=== PATIENT | male | born 1950 | race Caucasian/White ===

== ENCOUNTER → 2016-11-27 | Outpatient (CLI) | payer MEDICARE, OTHER ==
[~2016-11-27] MED LIST: ADVA100A INH; BENI40TA30 PO; CLON.2 PO; LABE200T2 PO; LEVA500T33 PO; METR-1 PO
--- NOTE | 2016-11-29 09:32 | RSPPFT ---
DATE OF PROCEDURE: 11/27/16 COMMENTS: VOLUMES DYNAMIC: FVC mildly reduced; FEV1 moderately reduced. STATIC: TLC normal; FRC mildly increased; RV severely increased. FLOWS: FEV1% moderately reduced; FEF 25-75 severely reduced. DIFFUSION: Moderately reduced. FLOW VOLUME LOOP: Pattern of variable intrathoracic airways obstruction. IMPRESSION: Moderate to severe obstructive ventilatory defect with reduction in diffusion consistent with emphysema. There is also significant hyperinflation. Airways resistance is increased. There is no improvement post-bronchodilator.
== END ==
LOC: PHRSP 08:44
PROVIDERS: ATTEND Internal Medicine
DX: J44.9 Chronic obstructive pulmonary disease, unspecified (principal); R06.00 Dyspnea, unspecified
CPT/HCPCS: 94060; 94620; 94726; 94729

== ENCOUNTER 2017-02-04 16:04 | Inpatient (IN) | payer MEDICARE, OTHER ==
[2017-02-04] VITALS (7 sets, daily range): BP systolic 136–153; BP diastolic 66–80; PULSE 80–94; RESP 15–20; TEMP 98–98.7; O2SAT 97–100
[2017-02-04] MEDS ORDERED: SODIUM CHLOR 0.9% 250 ML INJ 250 ML IV ONE (17:00)
[2017-02-04] MEDS ORDERED: NIFE30TA61 PO (17:11)
[2017-02-04] MEDS ORDERED: SPIRCAP INH (17:11)
[2017-02-04] MEDS ORDERED: TORS20TA PO (17:11)
[2017-02-04] MEDS ORDERED: CLON0.1T PO (17:11)
[2017-02-04] MEDS ORDERED: OMEP20TA93 PO (17:11)
[2017-02-04] MEDS ORDERED: METO50TA PO (17:11)
[2017-02-04] MEDS ORDERED: BENI40TA29 PO (17:11)
[2017-02-04] MEDS ORDERED: VENTAER INH (17:11)
[2017-02-04] MEDS ORDERED: ADVA250A INH (17:11)
[2017-02-04] MEDS ORDERED: XARE20TA PO (17:11)
--- NOTE | 2017-02-04 17:22 | PD ---
HPI Chief Complaint: Medical Clearance Time Seen by Provider: 16:57 Travel History International Travel<30 days: No Contact w/Intl Traveler<30days: No Traveled to known affect area: No History of Present Illness HPI patient c/o a week h/o generalized weakness and some occassional black tarry stool. aggravated by activity and no alleviating factor.... denies assoc factors such as abd pain/n/v/d/fever/cough/runny nose/blood in urine/vomiting blood pcp dr murillo all;moxifloxacin pmhx: afib on xarelto, copd, htn, divertic PFSH Past Medical History Asthma: Yes Atrial Fibrillation: Yes Blood Disorders: No Heart Rhythm Problems: No Cancer: No Cardiovascular Problems: Yes High Cholesterol: No Chest Pain: No Congestive Heart Failure: No COPD: Yes Cerebrovascular Accident: No Diminished Hearing: No Diverticulitis: Yes Endocrine: No Gastrointestinal Disorders: Yes (DIVERTICULITIS) GERD: No Genitourinary: No Headaches: No Hepatitis: No Hiatal Hernia: No Hypertension: Yes Immune Disorder: No Musculoskeletal: No Neurologic: Yes Psychiatric: No Reproductive: No Respiratory: Yes Migraines: No Myocardial Infarction: No Seizures: Yes Sleep Apnea: No Ulcer: No Tetanus Vaccination: > 5 Years ?: Not Past Surgical History Appendectomy: No Cholecystectomy: No Joint Replacement: Yes (right hip) Tonsillectomy: Yes Other Surgery: Yes (hernia) Social History Alcohol Use: Yes (2 DRINKS A DAY) Tobacco Use: No Substance Use: No Allergies-Medications (Allergen,Severity, Reaction): Coded Allergies: moxifloxacin (Verified Allergy, Severe, Anaphylaxis, 02/04/17) Reported Meds & Prescriptions Reported Meds & Active Scripts Active Reported Xarelto (Rivaroxaban) 20 Mg Tab 20 Mg PO DAILY Nifedipine ER 24 HR (Nifedipine) 30 Mg Tab 30 Mg PO DAILY Clonidine (Clonidine HCl) 0.1 Mg Tab 0.1 Mg PO DAILY Omeprazole 20 Mg Tab 20 Mg PO DAILY Metoprolol Tartrate 50 Mg Tab 50 Mg PO BID Torsemide 20 Mg Tab 20 Mg PO DAILY Benicar (Olmesartan) 40 Mg Tab 40 Mg PO DAILY Spiriva Handihaler (Tiotropium Inh) 18 Mcg Cap 18 Mcg INH DAILY 1 capsule = 18 mcg Ventolin Hfa 18 GM Inh (Albuterol Sulfate) 90 Mcg/Act Aer 2 Puff INH Q4H PRN Advair Diskus Inh (Fluticasone-Salmeterol Inh) 250-50 Mcg/Blist Aer 1 Puff INH BID Rinse mouth after use. Review of Systems Except as stated in HPI: all other systems reviewed are Neg General / Constitutional: No: Fever Eyes: No: Visual changes HENT: No: Headaches Cardiovascular: No: Chest Pain or Discomfort Respiratory: No: Shortness of Breath Gastrointestinal: No: Abdominal Pain Genitourinary: No: Dysuria Musculoskeletal: No: Pain Skin: No Rash Neurologic: Positive: Weakness (generalized) Psychiatric: No: Depression Endocrine: No: Polydipsia Hematologic/Lymphatic: No: Easy Bruising Physical Exam Narrative GENERAL: SKIN: Warm and dry. HEAD: Atraumatic. Normocephalic. EYES: Pupils equal and round. No scleral icterus. No injection or drainage. ENT: No nasal bleeding or discharge. Mucous membranes pink and moist. NECK: Trachea midline. No JVD. CARDIOVASCULAR: Regular rate and rhythm. RESPIRATORY: No accessory muscle use. Clear to auscultation. Breath sounds equal bilaterally. GASTROINTESTINAL: Abdomen soft, non-tender, nondistended. rn beto at bedside ( guaiac positive) MUSCULOSKELETAL: Extremities without clubbing, cyanosis, or edema. No obvious deformities. NEUROLOGICAL: Awake and alert. No obvious cranial nerve deficits. Motor grossly within normal limits. Five out of 5 muscle strength in the arms and legs. Normal speech. PSYCHIATRIC: Appropriate mood and affect; insight and judgment normal. Data Data Last Documented VS Vital Signs Date Time Temp Pulse Resp B/P (MAP) Pulse Ox O2 Delivery O2 Flow Rate FiO2 02/04/17 16:05 98.7 85 15 136/73 (94) 100 Orders Orders Complete Blood Count With Diff (02/04/17 16:58) Comprehensive Metabolic Panel (02/04/17 16:58) Prothrombin Time / Inr (Pt) (02/04/17 16:58) Act Partial Throm Time (Ptt) (02/04/17 16:58) Type And Screen (02/04/17 16:58) Red Blood Cells (Rbc) (02/04/17 16:58) Blood Product Administration (02/04/17 16:58) Sodium Chlor 0.9% 250 Ml Inj (Ns 250 Ml (02/04/17 17:00) Labs Laboratory Tests Test 02/04/17 17:18 White Blood Count 8.0 TH/MM3 Red Blood Count 3.55 MIL/MM3 Hemoglobin 6.1 GM/DL Hematocrit 22.0 % Mean Corpuscular Volume 61.9 FL Mean Corpuscular Hemoglobin 17.1 PG Mean Corpuscular Hemoglobin Concent 27.6 % Red Cell Distribution Width 21.5 % Platelet Count 327 TH/MM3 Mean Platelet Volume 8.3 FL Neutrophils (%) (Auto) 71.4 % Lymphocytes (%) (Auto) 12.8 % Monocytes (%) (Auto) 14.4 % Eosinophils (%) (Auto) 0.1 % Basophils (%) (Auto) 1.3 % Neutrophils # (Auto) 5.7 TH/MM3 Lymphocytes # (Auto) 1.0 TH/MM3 Monocytes # (Auto) 1.2 TH/MM3 Eosinophils # (Auto) 0.0 TH/MM3 Basophils # (Auto) 0.1 TH/MM3 CBC Comment DIFF FINAL Differential Comment Prothrombin Time 23.1 SEC Prothromb Time International Ratio 2.3 RATIO Activated Partial Thromboplast Time 35.2 SEC Blood Urea Nitrogen 21 MG/DL Creatinine 1.52 MG/DL Random Glucose 94 MG/DL Total Protein 7.6 GM/DL Albumin 3.8 GM/DL Calcium Level 8.9 MG/DL Alkaline Phosphatase 101 U/L Aspartate Amino Transf (AST/SGOT) 29 U/L Alanine Aminotransferase (ALT/SGPT) 29 U/L Total Bilirubin 0.8 MG/DL Sodium Level 134 MEQ/L Potassium Level 4.1 MEQ/L Chloride Level 98 MEQ/L Carbon Dioxide Level 27.1 MEQ/L Anion Gap 9 MEQ/L Estimat Glomerular Filtration Rate 46 ML/MIN [facility] Medical Decision Making Medical Screen Exam Complete: Yes Emergency Medical Condition: Yes Medical Record Reviewed: Yes Differential Diagnosis anemia v dehydration v uti v electrolyte abnl Narrative Course patient found to have hb 6.2, guaiac positive, in no abd pain, will call [facility] for admission, transfusion and further care Diagnosis Primary Impression: Symptomatic anemia Additional Impression: gi bleed nos Admitting Information Admitting Physician Requests: Observation Juice Bruno MD Feb 04, 2017 17:22
[2017-02-04 17:49] LABS: AUTOMATED NEUTROPHIL # 5.7 TH/MM3 (1.8-7.7); BASOPHIL # 0.1 TH/MM3 (0-0.2); BASOPHIL % 1.3 % (0.0-2.0); EOSINOPHIL % 0.1 % (0.0-4.0); LYMPH % 12.8 % (9.0-44.0); MEAN CELL VOLUME 61.9 FL (80.0-100.0); MEAN CORPUSCULAR HEMOGLOBIN 17.1 PG (27.0-34.0); MONO % 14.4 % (0.0-8.0); NEUT % 71.4 % (16.0-70.0); PLATELET COUNT 327 TH/MM3 (150-450); RED BLOOD COUNT 3.55 MIL/MM3 (4.50-5.90); RED CELL DISTRIBUTION WIDTH 21.5 % (11.6-17.2)
[2017-02-04 17:53] LABS: MEAN CORPUSCULAR HGB CONC 27.6 % (32.0-36.0)
[2017-02-04 17:54] LABS: HEMO FLAGS DIFF FINAL
[2017-02-04 17:57] LABS: APTT (PATIENT) 35.2 SEC (24.3-30.1); INTERNATIONAL NORMALIZED RATIO 2.3 RATIO; PROTHROMBIN TIME - PATIENT 23.1 SEC (9.8-11.6)
[2017-02-04 18:13] LABS: ALT (GPT) 29 U/L (12-78); ANION GAP 9 MEQ/L (5-15); AST (GOT) 29 U/L (15-37); BICARBONATE 27.1 MEQ/L (21.0-32.0); BLOOD UREA NITROGEN 21 MG/DL (7-18); CHLORIDE 98 MEQ/L (98-107); GLOMERULAR FILTRATION RATE 46 ML/MIN (>89); POTASSIUM 4.1 MEQ/L (3.5-5.1); SODIUM (NA) 134 MEQ/L (136-145)
[2017-02-04 18:15] LABS: ALKALINE PHOSPHATASE 101 U/L (45-117); TOTAL BILIRUBIN ADULT 0.8 MG/DL (0.2-1.0)
[2017-02-04] MEDS ORDERED: SODIUM CHLORIDE 0.9% FLUSH 10 ML FLUSH IV FLUSH PRN (19:15)
[2017-02-04] MEDS ORDERED: NALOXONE HCL 0.4 MG/ML AMP IV PUSH PRN (19:15)
--- NOTE | 2017-02-04 19:21 | HHI.HP ---
[facility] Brenden Daily MD Admission Diagnosis Diagnoses: Travel History International Travel<30 Days: No Contact w/Intl Traveler <30 Da: No Traveled to Known Affected Are: No History of Present Illness hx from patient, er md communication, review of med records have been short of breath, dizziness, weak for couple of months no chest pain saw dark stools at home went to PCP yesterday and had cbc, called back today to come to ER no vomit no blood in urine no nose bleed some discomfort in lower abdomen mid has hx of diverticulosis on xarelto no nsaids did pass out once from dizziness last week did not go to hospital then Review of Systems Except as stated in HPI: all other systems reviewed are Neg Past Family Social History Past Medical History htn afib chronic anticoagulation on xarelto copd not on home oxygen sleep apnea on cpap at night Past Surgical History hernia sx right hip replaced Allergies: Coded Allergies: moxifloxacin (Verified Allergy, Severe, Anaphylaxis, 02/04/17) Family History dad- bone cancer and lung cancer son- from colon cancer at age 39 Social History used to smoke, quit 14yrs ago smoked for 35yrs drinks etoh about 3-4 drinks wine no drugs lives with , still driving Physical Exam Vital Signs Vital Signs Date Time Temp Pulse Resp B/P (MAP) Pulse Ox O2 Delivery O2 Flow Rate FiO2 02/04/17 16:05 98.7 85 15 136/73 (94) 100 Physical Exam GENERAL: This is a well-nourished, well-developed patient, in no apparent distress. Pallor present SKIN: No rashes, ecchymoses or lesions. Cool and dry. HEAD: Atraumatic. Normocephalic. No temporal or scalp tenderness. EYES: No scleral icterus. No injection or drainage. ENT: Nose without bleeding, purulent drainage or septal hematoma. Airway patent. NECK: Trachea midline. No JVD CARDIOVASCULAR: Regular rate and rhythm without murmurs, gallops, or rubs. RESPIRATORY: Clear to auscultation. Breath sounds equal bilaterally. No wheezes , rales, or rhonchi. GASTROINTESTINAL: Abdomen soft, non-tender, nondistended. No guarding. MUSCULOSKELETAL: Extremities without clubbing, cyanosis, or edema. No calf tenderness. NEUROLOGICAL: Awake and alert. Motor and sensory grossly within normal limits. Normal speech. Laboratory Laboratory Tests Test 02/04/17 17:18 White Blood Count 8.0 Red Blood Count 3.55 Hemoglobin 6.1 Hematocrit 22.0 Mean Corpuscular Volume 61.9 Mean Corpuscular Hemoglobin 17.1 Mean Corpuscular Hemoglobin Concent 27.6 Red Cell Distribution Width 21.5 Platelet Count 327 Mean Platelet Volume 8.3 Neutrophils (%) (Auto) 71.4 Lymphocytes (%) (Auto) 12.8 Monocytes (%) (Auto) 14.4 Eosinophils (%) (Auto) 0.1 Basophils (%) (Auto) 1.3 Neutrophils # (Auto) 5.7 Lymphocytes # (Auto) 1.0 Monocytes # (Auto) 1.2 Eosinophils # (Auto) 0.0 Basophils # (Auto) 0.1 CBC Comment DIFF FINAL Differential Comment Prothrombin Time 23.1 Prothromb Time International Ratio 2.3 Activated Partial Thromboplast Time 35.2 Blood Urea Nitrogen 21 Creatinine 1.52 Random Glucose 94 Total Protein 7.6 Albumin 3.8 Calcium Level 8.9 Alkaline Phosphatase 101 Aspartate Amino Transf (AST/SGOT) 29 Alanine Aminotransferase (ALT/SGPT) 29 Total Bilirubin 0.8 Sodium Level 134 Potassium Level 4.1 Chloride Level 98 Carbon Dioxide Level 27.1 Anion Gap 9 Estimat Glomerular Filtration Rate 46 Result Diagram: 02/04/17171702/04/171717 Caprini VTE Risk Assessment Caprini VTE Risk Assessment: Mod/High Risk (score >= 2) Caprini Risk Assessment Model Point Value = 1 Point Value = 2 Point Value = 3 Point Value = 5 Age 41-60 Minor surgery BMI > 25 kg/m2 Swollen legs Varicose veins or History of unexplained or recurrent spontaneous Oral contraceptives or hormone replacement Sepsis (< 1 month) Serious lung disease, including pneumonia (< 1 month) Abnormal pulmonary function Acute myocardial infarction Congestive heart failure (< 1 month) History of inflammatory bowel disease Medical patient at bed rest Age 61-74 Arthroscopic surgery Major open surgery (> 45 min) Laparoscopic surgery (> 45 min) Malignancy Confined to bed (> 72 hours) Immobilizing plaster cast Central venous access Age >= 75 History of VTE Family history of VTE Factor V Leiden Prothrombin [id number] Lupus anticoagulant Anticardiolipin antibodies Elevated serum homocysteine Heparin-induced thrombocytopenia Other congenital or acquired thrombophilia Stroke (< 1 month) Elective arthroplasty Hip, pelvis, or leg fracture Acute spinal cord injury (< 1 month) Prophylaxis Regimen Total Risk Factor Score Risk Level Prophylaxis Regimen 0-1 Low Early ambulation 2 Moderate Order ONE of the following: *Sequential Compression Device (SCD) *Heparin 5000 units SQ BID 3-4 Higher Order ONE of the following medications: *Heparin 5000 units SQ TID *Enoxaparin/Lovenox 40 mg SQ daily (WT < 150 kg, CrCl > 30 mL/min) *Enoxaparin/Lovenox 30 mg SQ daily (WT < 150 kg, CrCl > 10-29 mL/min) *Enoxaparin/Lovenox 30 mg SQ BID (WT < 150 kg, CrCl > 30 mL/min) AND/OR *Sequential Compression Device (SCD) 5 or more Highest Order ONE of the following medications: *Heparin 5000 units SQ TID (Preferred with Epidurals) *Enoxaparin/Lovenox 40 mg SQ daily (WT < 150 kg, CrCl > 30 mL/min) *Enoxaparin/Lovenox 30 mg SQ daily (WT < 150 kg, CrCl > 10-29 mL/min) *Enoxaparin/Lovenox 30 mg SQ BID (WT < 150 kg, CrCl > 30 mL/min) AND *Sequential Compression Device (SCD) Assessment and Plan Assessment and Plan Impression: UGI Bleed likely due to xarelto hx of diverticulosis htn afib chronic anticoagulation on xarelto copd not on home oxygen sleep apnea on cpap at night Plan: PPI drip NPO transfuse 2 units prbc tonight repeat labs in am GI consulted hold xarelto resume rest of home meds dvt prophylaxis with scd Discussed Condition With patient, ER MD, nursing staff Physician Certification 2 Midnight Certification Type: Admission for Inpatient Services Order for Inpatient Services The services are ordered in accordance with Medicare regulations or non- Medicare payer requirements, as applicable. In the case of services not specified as inpatient-only, they are appropriately provided as inpatient services in accordance with the 2-midnight benchmark. Estimated LOS (days): 2 days is the estimated time the patient will need to remain in the hospital, assuming treatment plan goals are met and no additional complications. Post-Hospital Plan: Home Radames Mayo MD Feb 04, 2017 19:21
[2017-02-04] MEDS ORDERED: RESP: ALBUTEROL 2.5 MG/IPRATROPIUM 0.5 MG NEB (PRN) NEB (19:30)
[2017-02-04] MEDS ORDERED: PANTOPRAZOLE INJ 80 MG in SODIUM CHLORIDE 0.9% INJ 35 ML IV ONE (20:07)
[2017-02-04] MEDS: METOPROLOL TARTRATE 50 MG TAB PO SCH (21:00)
[2017-02-04] MEDS ORDERED: ADVA100A INH (21:14)
[2017-02-04] MEDS: SODIUM CHLORIDE 0.9% FLUSH 10 ML FLUSH IV FLUSH SCH (22:47)
[2017-02-05] VITALS (17 sets, daily range): BP systolic 141–162; BP diastolic 72–82; PULSE 85–116; RESP 17–20; TEMP 97.5–98.4; O2SAT 96–100
[2017-02-05] MEDS: PANTOPRAZOLE INJ 80 MG in SODIUM CHLORIDE 0.9% INJ 100 ML IV SCH ×2 (03:47→11:35)
[2017-02-05 08:49] LABS: AUTOMATED NEUTROPHIL # 6.7 TH/MM3 (1.8-7.7); BASOPHIL # 0.1 TH/MM3 (0-0.2); EOSINOPHIL % 0.2 % (0.0-4.0); HEMATOCRIT 26.4 % (39.0-51.0); LYMPH % 10.4 % (9.0-44.0); LYMPHOCYTE # 0.9 TH/MM3 (1.0-4.8); MEAN CELL VOLUME 65.8 FL (80.0-100.0); MEAN CORPUSCULAR HEMOGLOBIN 20.1 PG (27.0-34.0); MEAN CORPUSCULAR HGB CONC 30.6 % (32.0-36.0); MONO % 11.9 % (0.0-8.0); NEUT % 76.5 % (16.0-70.0); PLATELET COUNT 266 TH/MM3 (150-450); RED BLOOD COUNT 4.01 MIL/MM3 (4.50-5.90); RED CELL DISTRIBUTION WIDTH 26.8 % (11.6-17.2); WHITE BLOOD COUNT 8.7 TH/MM3 (4.0-11.0)
[2017-02-05] MEDS: TIOTROPIUM BROMIDE 18 MCG INH INH SCH (08:54)
[2017-02-05 09:00] LABS: HEMO FLAGS AUTO DIFF
[2017-02-05 09:13] LABS: BICARBONATE 24.7 MEQ/L (21.0-32.0); POTASSIUM 3.6 MEQ/L (3.5-5.1)
[2017-02-05 09:30] LABS: ACANTHOCYTES OCC (NORMAL)
[2017-02-05 09:31] LABS: OVALOCYTES 1+ (NORMAL); PLATELET ESTIMATE SMEAR NORMAL (NORMAL); PLATELET MORPHOLOGY ENLARGED (NORMAL); SCAN/DIFF AUTO DIFF CONFIRMED
[2017-02-05] MEDS: SODIUM CHLOR 0.9% 1000 ML INJ 1,000 ML IV SCH ×2 (10:00→23:20)
--- NOTE | 2017-02-05 10:28 | MB ---
cc: SAMI DAILY M.D., LOUIS M. MD OUNG, TWETHIDA MD DATE OF CONSULTATION 02/05/[address] Radames Mayo. REASON FOR CONSULTATION Anemia and heme-positive stool. HISTORY OF PRESENT ILLNESS Mateo is a very pleasant 66-year-old male who states that he has been developing gradual fatigue and weakness along with dyspnea on exertion over the past several months. He noticed it in September when he traveled to [place] to a . He went to see his PCP the other day, Dr. Daily, who ordered lab work and his hemoglobin came back at 6.1. He was found to have heme-positive stool in the ED but he states he only occasionally sees some dark stools and has not had any gross melena or hematochezia. He last had an upper endoscopy and colonoscopy with Dr. Anderson in 2013 and as I recall looking at those reports nothing major was found. No history of ulcer disease. The patient was started on Xarelto about 2 years ago for atrial fibrillation. He denies any history of thromboembolic events. He denies any abdominal pain, heartburn, trouble swallowing, nausea, weight loss or change in bowel habits, and other than the fatigue and poor exercise tolerance has had no GI symptoms. He denies any chest pain. SOCIAL HISTORY He is and his is at the bedside. He quit smoking cigarettes 14 years ago. He drinks wine on a regular basis. PAST MEDICAL HISTORY 1. Hypertension. 2. Atrial fibrillation; currently on Xarelto, last took a dose yesterday afternoon around 3:00 p.m. 3. COPD. 4. Sleep apnea; wears CPAP at night. PAST SURGICAL HISTORY 1. Right hip replacement. 2. Hernia repair. ALLERGIES He is allergic to MOXIFLOXACIN. FAMILY HISTORY His father had bone and lung cancer. His son from colon cancer at age 39. MEDICATIONS 1. Xarelto 20 mg daily. 2. Nifedipine ER 24-hour 30 mg daily. 3. Clonidine 0.1 mg daily. 4. Omeprazole 20 mg daily. 5. Metoprolol 50 mg twice a day. 6. Torsemide 20 mg daily. 7. Benicar 40 mg daily. 8. Spiriva inhaler daily. 9. Ventolin inhaler p.r.n. 10.Advair Diskus inhaler twice a day. REVIEW OF SYSTEMS The review of systems is remarkable for the fatigue and dyspnea with exertion and lightheadedness as discussed above. Occasional dark stools. Otherwise negative review of systems. PHYSICAL EXAMINATION GENERAL: A well-developed male in no acute distress. His blood pressure is 159/76, pulse 102, respirations 20 and nonlabored, temperature 98.4 orally. HEENT: Sclera anicteric. NECK: Supple without masses. LUNGS: Diminished breath sounds consistent with COPD but no rales, rhonchi or wheezes. HEART: Heart sounds are without murmur, gallop or rub. ABDOMEN: Soft and nontender. No palpable masses. No organomegaly. RECTAL: Not repeated. EXTREMITIES: No peripheral edema. SKIN: Warm and dry. NEUROLOGIC: He is alert and oriented with a pleasant affect. LABORATORY BUN on admission was 21 with creatinine 1.52, but improved overnight with hydration to 16 and 1.04 respectively. LFTs are unremarkable. Hemoglobin was 6.1 and has improved to 8.1 after 2 units of packed cells. White count 8.7, platelet count 266,000. PT yesterday was 23.1 with an INR of 2.3. IMAGING No recent imaging. IMPRESSION Severe anemia with heme-positive stool. The patient has a microcytic anemia with an MCV of 62, likely due to iron deficiency. Based on his history this anemia has likely been developing over many months due to a slow GI bleed. He has been given a transfusion with an appropriate rise in his H&H. PLAN I communicated with Dr. Wolf his ediphone operator who indicated that a 24-hour hold on the Xarelto should be adequate. Will schedule the patient for tomorrow for upper endoscopy and colonoscopy. I reviewed the risks, benefits and alternatives and informed consent was obtained. If negative I discussed the pill camera study. Will follow with you. Thank you this consult. MD JULIA Iyer/ANDRIY /9:50 AM /10:03 AM
[2017-02-05] MEDS: TORSEMIDE 20 MG TAB PO SCH (12:15)
[2017-02-05] MEDS: LOSARTAN 50 MG TAB PO SCH (12:15)
[2017-02-05] MEDS: METOPROLOL TARTRATE 50 MG TAB PO SCH ×2 (12:15→21:16)
[2017-02-05] MEDS: NIFEdipine 30 MG SUSTAINED RELEASE TAB PO SCH (12:16)
[2017-02-05] MEDS: cloNIDine HCL 0.1 MG TAB PO SCH (12:16)
[2017-02-05] MEDS: SODIUM CHLORIDE 0.9% FLUSH 10 ML FLUSH IV FLUSH SCH ×2 (12:23→21:16)
--- NOTE | 2017-02-05 15:38 | HHI.PR ---
Subjective Remarks Patient reports he is feeling good currently. No BM today. No pain. Objective Vitals Vital Signs Date Time Temp Pulse Resp B/P (MAP) Pulse Ox O2 Delivery O2 Flow Rate FiO2 02/05/17 12:03 97.8 101 17 151/79 (103) 98 02/05/17 08:36 98 Nasal Cannula 2.00 02/05/17 08:02 97.5 101 17 152/72 (98) 97 02/05/17 08:00 96 Room Air 21 02/05/17 08:00 92 02/05/17 03:59 97 02/05/17 03:55 98.4 102 20 159/76 (103) 97 02/05/17 03:54 98.4 102 20 159/76 97 02/05/17 01:41 98.4 85 20 145/79 96 02/05/17 01:23 98.2 85 20 144/81 97 02/05/17 00:49 88 02/05/17 00:48 97 BiPAP 02/05/17 00:43 97 21 02/04/17 23:43 Room Air 02/04/17 23:03 98.3 84 18 153/75 97 02/04/17 22:47 98.3 88 20 150/71 97 02/04/17 22:34 94 02/04/17 20:54 98.0 91 18 146/66 (92) 97 02/04/17 20:18 99 21 02/04/17 19:50 80 18 139/80 (99) 99 02/04/17 16:05 98.7 85 15 136/73 (94) 100 I/O 02/04/17 02/04/17 02/04/17 02/05/17 02/05/17 02/05/17 07:00 15:00 23:00 07:00 15:00 23:00 Intake Total 5 ml 840.5 ml Output Total 550 ml Balance 5 ml 290.5 ml Intake Oral 0 ml IV Total 25.5 ml Packed Cells 800 ml Blood Product IV Normal Saline Flush 5 ml 15 ml Output Urine Total 550 ml # Voids 1 # Bowel Movements 0 Result Diagram: 02/05/1773702/05/17737 Objective Remarks GENERAL: This is a well-nourished, well-developed patient, in no apparent distress. CARDIOVASCULAR: Normal rate and regular rhythm without murmurs, gallops, or rubs. RESPIRATORY: Good respiratory efforts. Breath sounds equal and clear to auscultation bilaterally. GASTROINTESTINAL: Abdomen soft, non-tender, non-distended. Normal active bowel sounds MUSCULOSKELETAL: Extremities without cyanosis, or edema. NEURO: Alert & Oriented x4 to person, place, time, situation. Moves all ext x4 PSYCH: Appropriate mood and affect. A/P Assessment and Plan 66-year-old male on chronic anticoagulation with Xarelto for A. fib admitted with symptomatic anemia and GI bleeding. GI bleeding: Patient is chronically anticoagulated with Xarelto for atrial fibrillation. - GI is following. Hold Xarelto for 24 hours. Plan for endoscopy tomorrow for GI. - Continue Protonix drip. - Follow H&H and transfuse as needed. Symptomatic anemia: - Patient is status post 2 units PRBC transfusion with appropriate response. - Continue to monitor H&H and transfuse as needed. Hypertension/A. fib: - Continue antihypertensives and rate control medications. Xarelto on hold. 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 COPD: Not in exacerbation - Continue Advair. Breathing treatment as needed. Supplemental oxygen as needed. GI prophylaxis: On PPI as above DVT PPx: SCDs. Kateryna Muñoz MD Feb 05, 2017 15:38
[2017-02-05] MEDS ORDERED: PEG (High)/E-LYTE SOLN 4000 ML BTL PO ONE (18:00)
[2017-02-05] MEDS: BUDESONIDE-FORMOTEROL 160/4.5 MCG INHALER INH SCH (21:16)
[2017-02-06] MEDS: PANTOPRAZOLE INJ 80 MG in SODIUM CHLORIDE 0.9% INJ 100 ML IV SCH (02:07)
[2017-02-06 03:43] VITALS: BP 132/75; PULSE 101; PULSE 91; RESP 18; TEMP 98.1; O2SAT 93
[2017-02-06 08:00] VITALS: BP 148/76; PULSE 85; PULSE 97; RESP 18; TEMP 97; O2SAT 97
[2017-02-06 08:22] LABS: HEMATOCRIT 26.5 % (39.0-51.0); MEAN CELL VOLUME 65.7 FL (80.0-100.0); MEAN CORPUSCULAR HEMOGLOBIN 20.4 PG (27.0-34.0); PLATELET COUNT 268 TH/MM3 (150-450); RED BLOOD COUNT 4.03 MIL/MM3 (4.50-5.90); RED CELL DISTRIBUTION WIDTH 26.6 % (11.6-17.2); WHITE BLOOD COUNT 7.9 TH/MM3 (4.0-11.0)
[2017-02-06 08:28] LABS: INTERNATIONAL NORMALIZED RATIO 1.4 RATIO; PROTHROMBIN TIME - PATIENT 13.9 SEC (9.8-11.6)
[2017-02-06 08:48] LABS: POTASSIUM 3.2 MEQ/L (3.5-5.1)
[2017-02-06] MEDS: SODIUM CHLORIDE 0.9% FLUSH 10 ML FLUSH IV FLUSH SCH (09:00)
[2017-02-06] MEDS ORDERED: RESP: ALBUTEROL 2.5 MG/IPRATROPIUM 0.5 MG NEB (SCH) ONE (09:11)
--- NOTE | 2017-02-06 10:08 | GIPROC ---
[facility] [address] [facility]. [facility], [address] EGD PROCEDURE REPORT EXAM DATE: 02/06/2017 PATIENT NAME: Forrest Novak MR #: [id number] BIRTHDATE: 1950 ATTENDING: Glynn Grimes MD ORDER #: [id number] IMPOSER: Ashley Hong and Marion Melvin STATUS: inpatient INDICATIONS: The patient is a 66 yr old male here for an EGD due to iron deficiency anemia PROCEDURE PERFORMED: EGD, diagnostic MEDICATIONS: None and Per Anesthesia. TOPICAL ANESTHETIC: none CONSENT: The patient understands the risks and benefits of the procedure and understands that these risks include, but are not limited to: sedation, allergic reaction, infection, perforation and/or bleeding. Alternative means of evaluation and treatment include, among others: physical exam, x-rays, and/or surgical intervention. The patient elects to proceed with this endoscopic procedure. medical equipment was checked for proper function. Hand hygiene and appropriate measures for infection prevention was taken. After the risks, benefits and alternatives of the procedure were thoroughly explained, Informed consent was verified, confirmed and timeout was successfully executed by the treatment team. The patient was anesthetized with topical anesthesia and the Pentax [id number] endoscope was introduced through the mouth and advanced to the third portion of the duodenum. Retroflexion was performed and was normal The gastroscope was then slowly withdrawn and removed. ESOPHAGUS: The mucosa of the esophagus appeared normal. STOMACH: The mucosa of the stomach appeared normal. DUODENUM: The duodenal mucosa appeared normal. ADVERSE EVENTS: There were no complications. IMPRESSIONS: 1. The esophagus appeared normal 2. The mucosa of the stomach appeared normal 3. Normal duodenal mucosa 4. Retroflexion was performed and was normal RECOMMENDATIONS: Colonoscopy PATIENT CONDITION: stable DISPOSITION: Inpatient REPEAT EXAM: NONE Glynn Grimes MD eSigned: Glynn Grimes MD 02/06/2017 10:08 AM cc: Brenden Daily M.D. PATIENT NAME: Forrest Novak MR#: [id number]
[2017-02-06 10:11] VITALS: BP 124/65; PULSE 98; RESP 18; TEMP 98; O2SAT 93
--- NOTE | 2017-02-06 10:17 | GIPROC ---
[facility] [address] [facility]. [facility], [address] COLONOSCOPY PROCEDURE REPORT EXAM DATE: 02/06/2017 PATIENT NAME: Forrest Novak MR #: [id number] BIRTHDATE: 1950 ENDOSCOPIST: Glynn Grimes MD ORDER #: [id number] SUPPLY CHAIN PLANNER: STATUS: inpatient INDICATIONS: The patient is a 66 yr old male here for a colonoscopy due to iron deficiency anemia PROCEDURE PERFORMED: Colonoscopy with biopsy Colonoscopy with polypectomy MEDICATIONS: None and Per Anesthesia. PREP QUALITY: good PREP TYPE:GoLytely ESTIMATED BLOOD LOSS: None CONSENT: The patient understands the risks and benefits of the procedure and understands that these risks include, but are not limited to: sedation, allergic reaction, infection, perforation and/or bleeding. Alternative means of evaluation and treatment include, among others: physical exam, x-rays, and/or surgical intervention. The patient elects to proceed with this endoscopic procedure. medical equipment was checked for proper function. Hand hygiene and appropriate measures for infection prevention was taken. After the risks, benefits and alternatives of the procedure were thoroughly explained, Informed consent was verified, confirmed and timeout was successfully executed by the treatment team. A digital exam was performed and revealed no abnormalities of the rectum The Pentax EC-[id number] endoscope was introduced through the anus and advanced to the terminal ileum which was intubated for a short distance. The instrument was then slowly withdrawn as the colon was fully examined. COLON FINDINGS: A sessile polyp measuring 2 mm in size was found at the cecum. A polypectomy was performed with cold forceps. The resection was complete and the polyp tissue was completely retrieved. A sessile polyp measuring 4 mm in size was found in the descending colon. A polypectomy was performed with a cold snare. The resection was complete and the polyp tissue was completely retrieved. Moderate diverticulosis was noted in the sigmoid colon. The colon mucosa was otherwise normal. Retroflexion was not performed due to a narrow rectal vault The scope was then completely withdrawn from the patient and the procedure terminated. PROCEDURE WITHDRAWAL TIME:17minutes Note: Had difficulty with poor air insufflation due to equipment. A small amount solid and particulate stool still present but overall views were adequate. ADVERSE EVENTS: There were no complications. IMPRESSIONS: 1. A sessile polyp was found at the cecum; polypectomy was performed with cold forceps 2. A sessile polyp was found in the descending colon; polypectomy was performed with a cold snare 3. Moderate diverticulosis was noted in the sigmoid colon 4. The colon mucosa was otherwise normal 5. Retroflexion was not performed due to a narrow rectal vault RECOMMENDATIONS: 1. Await biopsy results. Biopsy results will not be ready for 7-10 days. If you don't hear from us in two weeks, call our office for results. 2. High fiber diet 3. schedule small bowel Pillcam RECALL: Return 5 years Colonoscopy 4. If Pillcam negative would rec repeating colonoscopy. Glynn Grimes MD eSigned: Glynn Grimes MD 02/06/2017 10:17 AM cc: Brenden Daily M.D. PATIENT NAME: Forrest Novak MR#: [id number]
--- NOTE | 2017-02-06 10:20 | HHI.GIFU ---
GI Follow-up Note Consult Follow-up GI note- EGD was negative and colonoscopy revealed only two small polyps and diverticulosis. Rec oral iron supplementation and will schedule an outpt Pillcam study. OK to discharge home today from my standpoint. It was a pleasure seeing Forrest Novak Thank you for this consult. Entered by: Glynn Donnelly MD Feb 06, 2017 10:20
--- NOTE | 2017-02-06 11:18 | HHI.DCPOC ---
Discharge Care Plan Diagnosis: (1) Symptomatic anemia (2) Heme positive stool (3) Atrial fibrillation Goals to Promote Your Health * To prevent worsening of your condition and complications * To maintain your health at the optimal level Directions to Meet Your Goals Take your medications as prescribed Follow your dietary instruction Follow activity as directed Keep your appointments as scheduled Take your immunizations and boosters as scheduled If your symptoms worsen call your PCP, if no PCP go to Urgent Care Center or Emergency Room Smoking is Dangerous to Your Health. Avoid second hand smoke Call the 24-hour hour crisis hotline for domestic abuse at Kateryna Muñoz MD Feb 06, 2017 11:18
--- NOTE | 2017-02-06 11:20 | HHI.DS ---
Discharge Summary Admission Date Feb 04, 2017 at 19:22 Admitting Diagnosis Brief History - From Admission hx from patient, er md communication, review of med records have been short of breath, dizziness, weak for couple of months no chest pain saw dark stools at home went to PCP yesterday and had cbc, called back today to come to ER no vomit no blood in urine no nose bleed some discomfort in lower abdomen mid has hx of diverticulosis on xarelto no nsaids did pass out once from dizziness last week did not go to hospital then CBC/BMP: 02/06/17 0648 02/06/17 0648 Significant Findings Laboratory Tests Test 02/04/17 17:18 02/05/17 07:38 02/06/17 06:48 Red Blood Count 3.55 MIL/MM3 (4.50-5.90) 4.01 MIL/MM3 (4.50-5.90) 4.03 MIL/MM3 (4.50-5.90) Hemoglobin 6.1 GM/DL (13.0-17.0) 8.1 GM/DL (13.0-17.0) 8.2 GM/DL (13.0-17.0) Hematocrit 22.0 % (39.0-51.0) 26.4 % (39.0-51.0) 26.5 % (39.0-51.0) Mean Corpuscular Volume 61.9 FL (80.0-100.0) 65.8 FL (80.0-100.0) 65.7 FL (80.0-100.0) Mean Corpuscular Hemoglobin 17.1 PG (27.0-34.0) 20.1 PG (27.0-34.0) 20.4 PG (27.0-34.0) Mean Corpuscular Hemoglobin Concent 27.6 % (32.0-36.0) 30.6 % (32.0-36.0) 31.0 % (32.0-36.0) Red Cell Distribution Width 21.5 % (11.6-17.2) 26.8 % (11.6-17.2) 26.6 % (11.6-17.2) Neutrophils (%) (Auto) 71.4 % (16.0-70.0) 76.5 % (16.0-70.0) Monocytes (%) (Auto) 14.4 % (0.0-8.0) 11.9 % (0.0-8.0) Monocytes # (Auto) 1.2 TH/MM3 (0-0.9) 1.0 TH/MM3 (0-0.9) Prothrombin Time 23.1 SEC (9.8-11.6) 13.9 SEC (9.8-11.6) Activated Partial Thromboplast Time 35.2 SEC (24.3-30.1) Blood Urea Nitrogen 21 MG/DL (7-18) Creatinine 1.52 MG/DL (0.60-1.30) Sodium Level 134 MEQ/L (136-145) 135 MEQ/L (136-145) 135 MEQ/L (136-145) Estimat Glomerular Filtration Rate 46 ML/MIN (>89) 71 ML/MIN (>89) 80 ML/MIN (>89) Lymphocytes # (Auto) 0.9 TH/MM3 (1.0-4.8) Platelet Morphology Comment ENLARGED (NORMAL) Ovalocytes 1+ (NORMAL) Potassium Level 3.2 MEQ/L (3.5-5.1) PE at Discharge GENERAL: This is a well-nourished, well-developed patient, in no apparent distress. CARDIOVASCULAR: Normal rate and regular rhythm without murmurs, gallops, or rubs. RESPIRATORY: Good respiratory efforts. Breath sounds equal and clear to auscultation bilaterally. GASTROINTESTINAL: Abdomen soft, non-tender, non-distended. Normal active bowel sounds MUSCULOSKELETAL: Extremities without cyanosis, or edema. NEURO: Alert & Oriented x4 to person, place, time, situation. Moves all ext x4 PSYCH: Appropriate mood and affect. Pt Condition on Discharge: Good Discharge Disposition: Discharge Home Discharge Instructions DIET: Follow Instructions for: Heart Healthy Diet Activities you can perform: Regular-No Restrictions Kateryna Muñoz MD Feb 06, 2017 11:20
[2017-02-06] MEDS ORDERED: DO NOT ADM ANY ANTICOAGULANT DRUGS PRN (12:00)
[2017-02-06] MEDS ORDERED: LIDOCAINE HCL 1% PF 5 ML SYRINGE OTHER ONE (12:00)
[2017-02-06] MEDS ORDERED: PROPOFOL 200 MG/20 ML AMP IV ONE (12:00)
[2017-02-06] MEDS: BUDESONIDE-FORMOTEROL 160/4.5 MCG INHALER INH SCH (13:46)
[2017-02-06] MEDS: TIOTROPIUM BROMIDE 18 MCG INH INH SCH (13:46)
[2017-02-06] MEDS: NIFEdipine 30 MG SUSTAINED RELEASE TAB PO SCH (13:46)
[2017-02-06] MEDS: METOPROLOL TARTRATE 50 MG TAB PO SCH (13:47)
[2017-02-06] MEDS: TORSEMIDE 20 MG TAB PO SCH (13:48)
[2017-02-06] MEDS: LOSARTAN 50 MG TAB PO SCH (13:48)
[2017-02-06] MEDS: cloNIDine HCL 0.1 MG TAB PO SCH (13:48)
[2017-02-06] MEDS ORDERED: FERR325T18 PO (14:26)
--- NOTE | 2017-02-06 16:26 | EKG ---
Date Performed: 02/06/2017 Time Performed: 08:11:38 PTAGE: 66 years EKG: ATRIAL FIBRILLATION NONSPECIFIC ST & T-WAVE ABNORMALITY ABNORMAL RHYTHM ECG PREVIOUS TRACING : 07/20/2007 06.59 Since the prior tracing, the atrial fibrillation is a new f inding, but there is otherwise no significant serial change. DOCTOR: Yanni Guadalupe Interpretating Date/Time 02/06/2017 16:25:24
== END 2017-02-06 13:59 | disposition home or self-care (01) | DRG 811 ==
LOC: NEPD 16:04 → NEDA 19:22 → N04B 20:54
PROVIDERS: ADMIT Family Medicine; ATTEND Family Medicine
PROC: 30233N1 Transfusion of Nonautologous Red Blood Cells into Peripheral Vein, Percutaneous Approach (ICD-10-PCS; principal; 2017-02-05)
PROC: 0DBH8ZZ Excision of Cecum, Via Natural or Artificial Opening Endoscopic (ICD-10-PCS; 2017-02-06)
PROC: 0DBM8ZZ Excision of Descending Colon, Via Natural or Artificial Opening Endoscopic (ICD-10-PCS; 2017-02-06)
PROC: 0DJ08ZZ Inspection of Upper Intestinal Tract, Via Natural or Artificial Opening Endoscopic (ICD-10-PCS; 2017-02-06 09:20)
DX: D50.0 Iron deficiency anemia secondary to blood loss (chronic) (principal); K57.31 Diverticulosis of large intestine without perforation or abscess with bleeding; I48.91 Unspecified atrial fibrillation; J44.9 Chronic obstructive pulmonary disease, unspecified; I10 Essential (primary) hypertension; G47.30 Sleep apnea, unspecified; Z79.01 Long term (current) use of anticoagulants; Z87.891 Personal history of nicotine dependence; Z88.1 Allergy status to other antibiotic agents; Z96.641 Presence of right artificial hip joint
CPT/HCPCS: 36430; 80048; 80053; 85025; 85027; 85610; 85730; 86850; 86900; 86901; 86920; 88305; 93005; 94002; 94003; 94640; 94664; C9113; J7030; P9016